=== PATIENT | male | born 1985 | race African-American/Black ===

== ENCOUNTER 2019-11-16 14:22 | Emergency (ER) | payer BC ==
[~2019-11-16] VITALS: Ht 185.4 cm; Wt 86.9 kg
[2019-11-16] MEDS ORDERED: LIDOCAINE-MPF 1%, 5ML ONE (14:46)
[2019-11-16] MEDS ORDERED: DIPH,PERTUSS(ACELL),TET VAC/PF 0.5 ML IM-VACC ONE ×2 (14:46→15:00)
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
[2019-11-16] MEDS ORDERED: LIDOCAINE-MPF 1%, 5ML INFIL ONE (15:00)
[2019-11-16] MEDS ORDERED: NEOSPORIN OINT. PKT 1 PACKET ONE (16:05)
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
[2019-11-16 16:18] VITALS: BP 136/85
== END 2019-11-16 16:20 | disposition home or self-care (01) ==
LOC: ED 15:02
DX: S81.011A Laceration without foreign body, right knee, initial encounter (principal); S63.512A Sprain of carpal joint of left wrist, initial encounter; V86.96XA Unspecified occupant of dirt bike or motor/cross bike injured in nontraffic accident, initial encounter; Y93.89 Activity, other specified; Y92.828 Other wilderness area as the place of occurrence of the external cause; Y99.8 Other external cause status
CPT/HCPCS: 12042; 90471; 90715; 99284